=== PATIENT | female | born 1975 | race Caucasian/White ===

== ENCOUNTER 2017-07-05 12:16 | Outpatient (CLI) | payer OTHER | END 2017-07-05 12:17 | disposition home or self-care (01) | LOC: BICMRI 12:16 | PROVIDERS: ATTEND Internal Medicine | DX: M25.562 Pain in left knee (principal); M22.42 Chondromalacia patellae, left knee ==

== ENCOUNTER 2018-04-06 10:21 | Outpatient (CLI) | payer OTHER ==
--- NOTE | 2018-04-06 12:13 | ULT ---
ABDOMINAL ULTRASOUND: HISTORY: Abdominal pain. FINDINGS: Real-time imaging of the upper abdomen was performed. This shows a normal size gallbladder. There i s a tiny 3 mm echogenic area along the gallbladder wall which appears adherent to the wall most no tible with a small polyp. No gallstones. No gallbladder wall thickening. The common duct is 3 mm. The technologist reports a negative ultrasound Osborn's sign. The liver measures 15.5 cm in length. It shows no focal abnormalities. The spleen measures 10.4 cm. Pancreas, abdominal aorta, and IVC regions are unremarkable. Right and left kidneys are normal in si ze and not obstructed. IMPRESSION: Small gallbladder polyp measuring in the 3 mm range. POS: OFF
== END 2018-04-06 10:22 | disposition home or self-care (01) ==
LOC: BICULT 10:21
PROVIDERS: ATTEND Internal Medicine
DX: R10.9 Unspecified abdominal pain (principal); K82.4 Cholesterolosis of gallbladder
CPT/HCPCS: 76700

== ENCOUNTER 2018-07-25 08:13 | Outpatient (CLI) | payer OTHER ==
--- NOTE | 2018-07-25 09:15 | ULT ---
US Pelvic W Doppler HISTORY: Right-sided pelvic pain COMPARISON: None. FINDINGS: Real-time imaging of the pelvis was obtained transabdominally. The uterus has been removed. The right ovary is normal in size. The left ovary is never identified. No free fluid or other findings. Doppler evaluation with spectral analysis: Normal flow shown to the right ovary. IMPRESSION: Postop hysterectomy change. The left ovary is not identified. The right ovary is normal i n appearance.
--- NOTE | 2018-07-25 09:47 | ULT ---
EXAM: ABDOMINAL ULTRASOUND COMPLETE: History: Abdominal pain, primarily right sided, with constipation. Comparison: 04-06-18 FINDINGS: Liver appears unremarkable. Again noted is a small approximately 0.4 cm gallbladder fundus polyp. No gallbladder wall thickening or pericholecystic fluid. Common bile duct is unremarkable. No intrahepat ic ductal dilatation. Visualized pancreas, IVC, aorta and spleen are unremarkable. Kidneys show no hy dronephrosis. No abscess or abnormal fluid collection. IMPRESSION: Small stable gallbladder fundus polyp. No other significant abnormality. POS: [facility]
== END 2018-07-25 08:14 | disposition home or self-care (01) ==
LOC: BICULT 08:13
PROVIDERS: ATTEND Internal Medicine
DX: R10.9 Unspecified abdominal pain (principal); K82.4 Cholesterolosis of gallbladder; Z90.710 Acquired absence of both cervix and uterus
CPT/HCPCS: 76700; 76856; 93976

== ENCOUNTER 2018-10-04 07:05 | Outpatient (CLI) | payer OTHER ==
--- NOTE | 2018-10-04 09:09 | CT ---
CT ABDOMEN AND PELVIS WITH ORAL AND IV CONTRAST: HISTORY: Acute abdominal pain, chronic constipation, diarrhea, and abdominal cramping. FINDINGS: There is mild atelectatic change at the left lung base. The spleen measures 13 cm in AP dimension. The pancreas, adrenal glands, and kidneys are normal. No calcified gallstones are seen. No free air, free fluid, or lymphadenopathy is seen in the abdomen or pelvis. The small bowel loops are not abnormally dilated. There is fecal material in the colon and rectum. A normal appearing brenna endix is seen. No aneurysmal dilatation of the abdominal aorta is seen. The patient is post cholecystectomy. There are mild degenerative changes in the spine. No thickening of the [place] of the terminal ileum are se en. IMPRESSION: 1. Borderline splenomegaly. 2. Constipation. POS: [facility]
[2018-10-04] MEDS ORDERED: Iopamidol 370 76% 100 ML VIAL ONE (13:40)
== END 2018-10-04 07:06 | disposition home or self-care (01) ==
LOC: CT 07:05
PROVIDERS: ATTEND Internal Medicine
DX: R10.9 Unspecified abdominal pain (principal); K59.00 Constipation, unspecified; R16.1 Splenomegaly, not elsewhere classified
CPT/HCPCS: 74177; Q9967

== ENCOUNTER 2018-12-15 19:30 | Outpatient (CLI) | payer OTHER | END 2018-12-15 19:31 | disposition home or self-care (01) | LOC: SLEEPLAB 19:30 | PROVIDERS: ATTEND Internal Medicine | DX: G47.33 Obstructive sleep apnea (adult) (pediatric) (principal); R53.83 Other fatigue; G47.10 Hypersomnia, unspecified | CPT/HCPCS: 95810 ==

== ENCOUNTER 2019-01-17 07:11 | Outpatient (CLI) | payer OTHER ==
--- NOTE | 2019-01-17 08:35 | ULT ---
ABDOMINAL ULTRASOUND COMPLETE: Date: 01/17/19 HISTORY: Splenomegaly. COMPARISON: 07/25/18. FINDINGS: The liver appears unremarkable. No evidence of gallstones, gallbladder wall thickening, edema, or per icholecystic fluid. Common bile duct within normal limits. Visualized pancreas, IVC, aorta, and splee n are unremarkable. Spleen is within normal limits of size measuring up to 12.0 cm. No abnormal fluid collection. IMPRESSION: No significant process. No splenomegaly. Spleen measures 12.0 cm. POS: [facility]
== END 2019-01-17 07:12 | disposition home or self-care (01) ==
LOC: BICULT 07:11
PROVIDERS: ATTEND Internal Medicine
DX: R16.1 Splenomegaly, not elsewhere classified (principal)
CPT/HCPCS: 93975

== ENCOUNTER 2019-02-01 13:56 | Outpatient (CLI) | payer OTHER ==
--- NOTE | 2019-02-01 15:28 | ULT ---
Focused ultrasound of the left axilla: 02/01/2019 HISTORY: Pain in the left axillary region FINDINGS: Focused ultrasound in the left axillary region in the area of patient pain reveals no mass lesion, lymphadenopathy, or fluid collection. If symptoms persist, cross-sectional imaging via CT or MRI suggested. IMPRESSION: Unremarkable focused ultrasound of the left axilla.
--- NOTE | 2019-02-01 16:13 | MMO ---
Bilateral MAMMO Bilat Screen DDI. CLINICAL HISTORY: Patient is 43 years old and is seen for screening. The patient has the following family history of breast cancer: maternal aunt, malignant (generic). The patient has no personal history of cancer. VIEWS: The views performed were: bilateral craniocaudal and bilateral mediolateral oblique. FILMS COMPARED: The present examination has been compared to a prior imaging study performed at [facility] on 06/16/2015. This study has been interpreted with the assistance of computer-aided detection. MAMMOGRAM FINDINGS: There are scattered fibroglandular densities. There is an asymmetric density seen in the inner region of the right breast, only seen on CC view. In the left breast, there are no suspicious masses, calcifications or areas of architectural distortion. IMPRESSION: ASYMMETRIC DENSITY IN THE RIGHT BREAST REQUIRES ADDITIONAL EVALUATION. ADDITIONAL IMAGING IS RECOMMENDED. ACR BI-RADS Category 0 - Incomplete: Need additional imaging evaluation. [facility] will notify the patient of the need for additional imaging services. MAMMOGRAPHY NOTE: 1. A negative mammogram report should not delay a biopsy if a dominant of clinically suspicious mass is present. 2. Approximately 10% to 15% of breast cancers are not detected by mammography. 3. Adenosis and dense breasts may obscure an underlying neoplasm. Reported by: PRITESH THAKKAR MD Electonically Signed: [id number]
== END 2019-02-01 13:57 | disposition home or self-care (01) ==
LOC: BICMAMMO 13:56
PROVIDERS: ATTEND Internal Medicine
DX: Z12.31 Encounter for screening mammogram for malignant neoplasm of breast (principal); M79.622 Pain in left upper arm; N64.89 Other specified disorders of breast; Z80.3 Family history of malignant neoplasm of breast
CPT/HCPCS: 76999; 77067

== ENCOUNTER 2019-02-07 12:20 | Outpatient (CLI) | payer OTHER ==
--- NOTE | 2019-02-07 13:02 | MMO ---
Right Breast MAMMO Unilat Diag DDI RT+TAMI. CLINICAL HISTORY: Patient is 43 years old and is seen for additional evaluation requested from prior study. The patient has the following family history of breast cancer: maternal aunt, malignant (generic). The patient has no personal history of cancer. VIEWS: The views performed were: right craniocaudal spot compression with tomosynthesis and right mediolateral with tomosynthesis. FILMS COMPARED: The present examination has been compared to prior imaging studies performed at [facility] on 02/01/2019, and at [facility] on 06/16/2015. This study has been interpreted with the assistance of computer-aided detection. MAMMOGRAM FINDINGS: There are scattered fibroglandular densities. Additional views were performed. The previously seen abnormality is not definitely seen on the current study. There are no suspicious masses, suspicious calcifications, or new areas of architectural distortion. IMPRESSION: THERE IS NO MAMMOGRAPHIC EVIDENCE OF MALIGNANCY. A ROUTINE FOLLOW-UP MAMMOGRAM IN 1 YEAR IS RECOMMENDED. THE RESULTS OF THIS EXAM WERE SENT TO THE PATIENT. ACR BI-RADS Category 2 - Benign finding MAMMOGRAPHY NOTE: 1. A negative mammogram report should not delay a biopsy if a dominant of clinically suspicious mass is present. 2. Approximately 10% to 15% of breast cancers are not detected by mammography. 3. Adenosis and dense breasts may obscure an underlying neoplasm. Reported by: ARMANDO MILLER MD Electonically Signed: [id number]
== END 2019-02-07 12:21 | disposition home or self-care (01) ==
LOC: BICMAMMO 12:20
PROVIDERS: ATTEND Internal Medicine
DX: R92.2 Inconclusive mammogram (principal)
CPT/HCPCS: G0279

== ENCOUNTER 2020-09-10 07:17 | Outpatient (CLI) | payer BC | END 2020-09-10 07:18 | disposition home or self-care (01) | LOC: BICULT 07:17 | PROVIDERS: ATTEND Internal Medicine | DX: K82.4 Cholesterolosis of gallbladder (principal); E80.6 Other disorders of bilirubin metabolism | CPT/HCPCS: 76705 ==

== ENCOUNTER 2020-12-11 10:35 | Outpatient (CLI) | payer BC | END 2020-12-11 10:36 | disposition home or self-care (01) | LOC: NM 10:35 | PROVIDERS: ATTEND Internal Medicine | DX: R11.10 Vomiting, unspecified (principal) | CPT/HCPCS: 78227; A9537 ==

== ENCOUNTER 2020-12-19 08:56 | Outpatient (CLI) | payer BC ==
[2020-12-19] MEDS ORDERED: Iopamidol 370 76% 100 ML VIAL ONE (10:10)
== END 2020-12-19 08:57 | disposition home or self-care (01) ==
LOC: CT 08:56
PROVIDERS: ATTEND Internal Medicine
DX: R11.2 Nausea with vomiting, unspecified (principal)
CPT/HCPCS: 74177; Q9967

== ENCOUNTER 2021-04-09 12:47 | Outpatient (CLI) | payer BC | END 2021-04-09 12:48 | disposition home or self-care (01) | LOC: BICULT 12:47 | PROVIDERS: ATTEND Internal Medicine | DX: M79.662 Pain in left lower leg (principal) ==

== ENCOUNTER 2022-04-06 11:39 | Outpatient (CLI) | payer BC | END 2022-04-06 11:40 | disposition home or self-care (01) | LOC: ULT 11:39 | PROVIDERS: ATTEND Internal Medicine | DX: R10.11 Right upper quadrant pain (principal) | CPT/HCPCS: 36415; 76705; 80053; 82977; 83690; 85025 ==

== ENCOUNTER 2022-09-08 13:38 | Outpatient (CLI) | payer BC | END 2022-09-08 13:39 | disposition home or self-care (01) | LOC: NM 13:38 | PROVIDERS: ATTEND Internal Medicine | DX: K80.50 Calculus of bile duct without cholangitis or cholecystitis without obstruction (principal) | CPT/HCPCS: 78227; A9537 ==

== ENCOUNTER 2023-06-18 11:32 | Emergency (ER) | payer BC, OTHER ==
[2023-06-18] MEDS ORDERED: Acetaminophen 500 MG TAB ONE (12:17)
== END 2023-06-18 13:44 | disposition home or self-care (01) ==
LOC: ERS 11:32
DX: M25.511 Pain in right shoulder (principal); M25.521 Pain in right elbow; M54.2 Cervicalgia; E07.89 Other specified disorders of thyroid
CPT/HCPCS: 70450; 72125